=== PATIENT | female | born 1945 | race Caucasian/White ===

== ENCOUNTER 2018-02-15 14:02 | Emergency (ER) | payer MEDICARE, BC ==
[2018-02-15 14:07] VITALS: BP 132/81; PULSE 76; RESP 20; TEMP 98.4
--- NOTE | 2018-02-15 14:29 | ED ---
General Adult HPI - General Chief complaint: Skin/Abscess/Foreign Body Stated complaint: Possible Shingles Time Seen by Provider: 02/15/18 14:15 Source: patient, RN notes reviewed Mode of arrival: ambulatory Limitations: no limitations - History of Present Illness Initial comments: Patient is a 72-year-old female who presents to the emergency department with complaints of a rash for 2 days that has blisters. Patient states that it is tender at rest also with touch. She reports trying A+D Ointment on it. She reports that she had shingles in her eye previously. She reports having gotten the shingles vaccine. She denies being around anyone with chickenpox or shingles recently. She denies pain, it is only "tender." She denies needing pain medication at this time. Denies any other rashes. Patient denies any recent itchiness, fever, chills, shortness of breath, chest pain, back pain, abdominal pain, nausea or vomiting, numbness or tingling, headaches or visual changes, or any other complaints. - Related Data Previous Rx's Medication Instructions Recorded predniSONE 40 mg PO DAILY 5 Days tab 02/15/18 valACYclovir HCL [Valtrex] 1,000 mg PO TID #21 tablet 02/15/18 Allergies Allergy/AdvReac Type Severity Reaction Status Date / Time No Known Allergies Allergy Verified 02/15/18 14:07 Review of Systems ROS Statement: Those systems with pertinent positive or pertinent negative responses have been documented in the HPI. ROS Other: All systems not noted in ROS Statement are negative. Past Medical History Past Medical History: Hyperlipidemia, Hypertension Additional Past Medical History / Comment(s): ulcerative colitis, back pain History of Any Multi-Drug Resistant Organisms: None Reported Past Surgical History: Orthopedic Surgery Past Psychological History: No Psychological Hx Reported Smoking Status: Former smoker Past Alcohol Use History: Occasional Past Drug Use History: None Reported General Exam - General Exam Comments Initial Comments: General: Well-developed, well-nourished, no acute distress HEENT: Normocephalic/atraumatic, PERRL, no eye erythema, no pharynx erythema, swallowing well, no cervical lymph nodes Neck: Supple, nontender, trachea midline Chest/Lungs: Normal respirations, no signs of respiratory distress, clear to auscultation bilaterally, no wheezes, rales, or rhonchi Cardiac: Regular rate and rhythm, normal S1-S2, no murmurs rubs or gallops Abdomen/GI: Tenderness to palpation over the rash. Soft. Musculoskeletal: Nontender, moving all extremities Skin: Erythematous vesicular rash over right back/flank/ abdomen in dermatomal distribution. No other rashes. Warmth, no cyanosis or diaphoresis. Neurologic: A&O x 3 Psychiatric: Mood and affect normal, judgment normal Limitations: no limitations Course Vital Signs 02/15/18 14:05 Temperature 98.4 F Pulse Rate 76 Respiratory 20 Rate Blood Pressure 132/81 O2 Sat by Pulse 98 Oximetry Medical Decision Making - Medical Decision Making Patient is a 72-year-old female who presents the emergency department with complaint of a rash that is vascicular in a dermatomal distribution on her right side. This appears to be a shingles rash. Prescribed Valtrex and prednisone. Case discussed with Dr. Palencia. Disposition Clinical Impression: Herpes zoster Disposition: HOME SELF-CARE Condition: Good Instructions: Shingles (ED) Additional Instructions: Follow-up with PCP in 2 days. Return to the emergency department if symptoms worsen or any other concerns. Prescriptions: predniSONE 40 mg PO DAILY 5 Days tab valACYclovir HCL [Valtrex] 1,000 mg PO TID #21 tablet Is patient prescribed a controlled substance at d/c from ED?: No Referrals: Juan Daniel Yo DO [Primary Care Provider] - 1-2 days Time of Disposition: 15:54
== END 2018-02-15 15:57 | disposition home or self-care (01) ==
LOC: EC 14:02
DX: B02.9 Zoster without complications (principal); I10 Essential (primary) hypertension; Z87.891 Personal history of nicotine dependence
CPT/HCPCS: 99282

== ENCOUNTER → 2021-03-29 | Outpatient (CLI) | payer MEDICARE, BC ==
--- NOTE | 2021-03-29 16:51 | XR ---
Left humerus HISTORY: Pain 2 views of the left humerus, no comparisons There is arthropathy within the left shoulder, spurring, eburnation at the glenohumeral joint. Acromi al clavicular joint arthropathy is also present, there is a downward turn acromion. Left lung apex as visualized is normal. Bone mineralization is reduced. No fracture or dislocation. IMPRESSION: Osteoarthritis, correlate for impingement within the shoulder.
== END | disposition home or self-care (01) ==
LOC: RADXRMAIN 14:32
PROVIDERS: ATTEND Family Medicine
DX: M19.012 Primary osteoarthritis, left shoulder (principal)

== ENCOUNTER 2021-08-28 13:15 | Day surgery (SDC) | payer MEDICARE, BC ==
[2021-08-25 09:49] VITALS: BMI 30.2
[~2021-08-28 13:15] MED LIST: LACTATED RINGERS 1,000 ML IV SCH; SODIUM CHLORIDE 0.9% 1,000 ML IV SCH
[2021-08-28] MEDS ORDERED: SODIUM CHLORIDE 0.9% 1,000 ML IV ONE (13:57)
[2021-08-28 14:11] LABS: INR 2.9 (<1.2); Prothrombin Time 28.6 sec (9.0-12.0)
[2021-08-28] MEDS ORDERED: SUCCINYLCHOLINE CHLORIDE 100 MG/5 ML SYR IV ONE (15:59)
[2021-08-28] MEDS ORDERED: PROTAMINE SULFATE 10 MG/ML 5 ML VIAL IV ONE (15:59)
[2021-08-28] MEDS ORDERED: MIDAZOLAM 2 MG/2 ML VIAL ONE (15:59)
[2021-08-28] MEDS ORDERED: ISOPROTERENOL 250 MCG/1.25 ML SYR IV ONE (15:59)
[2021-08-28] MEDS ORDERED: LIDOCAINE 1% INJ 10MG/ML (20 ML MDV) ONE ×2 (15:59→16:22)
[2021-08-28] MEDS ORDERED: fentaNYL (PF) 50 MCG/ML 2 ML AMP ONE (15:59)
[2021-08-28] MEDS ORDERED: PROPOFOL 10 MG/ML 20 ML VIAL IV ONE (15:59)
[2021-08-28] MEDS ORDERED: HEPARIN SODIUM,PORCINE 10,000 UNIT/ML 1 ML VIAL ONE (15:59)
--- NOTE | 2021-08-28 16:11 | P.HPCAR ---
History of Present Illness This is Dr. Thrasher dictating an H/P on this patient The patient was interviewed and examined IMPRESSION / ASSESSMENT: Persistent atrial fibrillation Status post electrocardioversion on flecainide 100 mg twice daily Hypothyroidism currently on methimazole. TSH is normalized Preserved LV systolic function, no ischemia on stress testing A. fib with RVR on propranolol, after 180 beats a minute On warfarin, INR therapeutic at 2.9 PLAN: A. fib ablation Continue warfarin HPI Patient is doing well from a cardiac standpoint no chest discomfort no dizziness lightheadedness or palpitations during orthopnea PND. No fever chills cough expectoration ROS: No fever chills or rigors, no cough, phlegm or expectoration, no nausea, vomiting or diarrhea, no hematuria, dysuria, no musculoskeletal complaints, no strokes or seizures, no skin lesions. EXAMINATION: On examinationHR 61 blood pressure 172/91 No JVD Normal breath sounds No rhonchi no crackles Normal S1 normal S2 no murmurs Abdomen soft Extremities warm no edema REVIEW OF LABS, ECG & MEDICAL DATA INR 2.9 Physical Exam Vitals: Vital Signs Temp Pulse Resp BP Pulse Ox 08/28/21 14:00 98.2 F 107 H 16 172/91 97 Intake and Output 08/28/21 08/28/21 08/28/21 06:59 14:59 22:59 Intake Total 50 Balance 50 Intake: IV 50 Other: Weight 94.7 kg Past Medical History Past Medical History: Atrial Fibrillation, Cancer, Hyperlipidemia, Hypertension, Osteoarthritis (OA), Thyroid Disorder Additional Past Medical History / Comment(s): ulcerative colitis, back pain, breast cancer 2001-had surgery & radiation, hyperthyroid, see Dr. Thrasher H & P History of Any Multi-Drug Resistant Organisms: None Reported Past Surgical History: Breast Surgery, Joint Replacement, Orthopedic Surgery Additional Past Surgical History / Comment(s): right breast lumpectomy, alexandra hip replacements Past Anesthesia/Blood Transfusion Reactions: No Reported Reaction Smoking Status: Former smoker Physical Examination Vital Signs Temp Pulse Resp BP Pulse Ox 08/28/21 14:00 98.2 F 107 H 16 172/91 97 Intake and Output 08/28/21 08/28/21 08/28/21 06:59 14:59 22:59 Intake Total 50 Balance 50 Intake: IV 50 Other: Weight 94.7 kg Results Coagulation 08/28/21 Range/Units 13:53 PT 28.6 H (9.0-12.0) sec Current Medications Generic Name Dose Route Start Last Admin Trade Name Freq PRN Reason Stop Dose Admin Lactated Ringer's 1,000 mls @ 20 mls/hr 08/28/21 07:31 Lactated Ringers IV 09/27/21 07:32 .Q24H ADDY Sodium Chloride 1,000 mls @ 20 mls/hr 08/28/21 07:31 Saline 0.9% IV 09/27/21 07:32 .Q24H ADDY Intake and Output 08/28/21 08/28/21 08/28/21 06:59 14:59 22:59 Intake Total 50 Balance 50 Intake: IV 50 Other: Weight 94.7 kg Patient Weight 08/29/21 06:59 Weight 94.7 kg
[2021-08-28] MEDS ORDERED: LIDOCAINE 1% INJ 10MG/ML (20 ML MDV) SQ ONE ×2 (16:28)
[2021-08-28] MEDS ORDERED: HEPARIN SOD,PORK IN 0.45% NACL 25,000 UNIT in 0.45% NACL 1 250ML.BAG IV ONE (17:00)
[2021-08-28] MEDS ORDERED: IOPAMIDOL-370 100ML BTL INJ ONE (18:00)
[2021-08-28] MEDS ORDERED: ACETAMINOPHEN IV (For NPO) 1,000 MG in EMPTY BAG 1 BAG IVPB ONE (18:18)
[2021-08-28] MEDS ORDERED: ACETAMINOPHEN TAB 325 MG TAB PO PRN (18:18)
--- NOTE | 2021-08-28 18:22 | P.PRLE ---
RE: Concetta Lu Dear Juan Daniel Hylton underwent successful PVI and left atrial roof ablation for management of atrial fibrillation At this time I would continue flecainide 50 mg twice daily as well as anticoagulation Thank you for entrusting me with the care of the patient Warm regards Sincerely Jos Thrasher
--- NOTE | 2021-08-28 18:46 | P.EPPROC ---
- EP Procedure Note Electrophysiology Procedure Note: PROCEDURE A. fib ablation DIAGNOSIS Persistent Atrial fibrillation, symptomatic RESULT No left atrial appendage mass seen on intracardiac echo Successful A. fib ablation/pulmonary vein isolation of all veins using cryo- ablation Left atrial roof line Complete entrance block in all 4 veins confirmed No evidence for phrenic nerve injury Esophageal deflection YES , left-sided esophagus Following that Inducible atrial tachycardia with concentric CS activation, atrial CL 360 ms at the end of the procedure Antitachycardia pacing failed Electrical cardioversion with a synchronized shock across the chest was successful PROCEDURE DETAILS Patient was brought to the EP lab in a fasting state after obtaining written informed consent. Procedure performed under general anesthesia Esophagus was intubated. Esophageal temperature monitoring with circa catheter. Esophageal deflection with an endoscope to avoid hypothermia of the esophagus. After initial muscle relaxant use, muscle relaxants were not given thereafter in order to assess phrenic nerve during procedure. Patient prepped and draped as per protocol Cryo ablation-set up with standard preparation of the cryoablation tools done. Femoral Venous access obtained on the right and left groins and sheaths placed Diagnostic catheters for the high right atrium, phrenic nerve stimulation and pacing, His bundle, coronary sinus placed Intracardiac echo catheter placed. Long sheath placed in the right atrium Left and right transseptal catheterization performed under intracardiac echo guidance. Intravenous heparin with aCT above 300 Later, catheter positioning and balloon positioning in the left atrium and pulmonary veins, under intracardiac echo guidance Diagnostic EP study with coronary sinus pacing and recording Baseline measurements: Sinus cycle length 863 ms, WV interval 178 ms, QRS 112 and QT 570 ms AH 83 and HV 43 ms AV node Wenckebach block 420 ms Sinus recovery times at 600, 500-400 ms were 1085, 1123 and 1121 ms Transseptal catheterization performed RA pressure 13/2/8 LA pressure 20/6/13 Transseptal catheterization performed with standard sheath. The cryoablation sheath was then placed with an over the wire exchange without any acute complications. The cryoablation balloon was placed in the office of each pulmonary vein and all 4 pulmonary veins were isolated. IV dye was injected to confirm occlusion. Goal: achieve complete occlusion of the pulmonary vein, achieve -30 degrees C at 30 seconds and achieve -40 degrees C at 60 seconds and a time to effect of less than 60 seconds. If not, the balloon was repositioned to obtain this result After completion of Cryoblation with durations from 180-240 seconds, entrance block was confirmed with the Attain circular catheter in a roving fashion around the antrum of the pulmonary veins Phrenic nerve pacing was performed from the SVC, right innominate vein area and diaphragm voltage was monitored. Diaphragmatic contractions were also monitored manually for strength of contraction. Linear ablation was performed across the left atrial roof with contiguous overlapping lesions At the end of the procedure the Achieve catheter was once again used to check for entrance block Phrenic nerve stimulation was performed to confirm diaphragmatic stimulation the end of the procedure Cine fluoroscopy was performed at the very end of the procedure to confirm movement of both diaphragms with inspiration and expiration Following that burst stimulation was performed from the high right atrium. At a pacing cycle length of 290 ms, atrial tachycardia with concentric atrial activation in the Manny sinus poles, Atrial cycle length 360 ms Not pace terminable Electrical cardioversion was performed to sinus rhythm Following that Isuprel was administered No atrial fibrillation could be induced At the end of the procedure the patient was extubated Venous sheaths were removed and hemostasis assured with a closure device PROCEDURES PERFORMED Diagnostic EP study CS pacing and recording Left and right transseptal catheterization Catheter the mapping of the tachycardia Intracardiac echocardiography Pulmonary vein isolation with transseptal and comprehensive EPS, 18671 Drug infusion, +40009 Left atrial roof line, +60968 Electrical cardioversion with a synchronized shock across the chest 19646
[2021-08-28] MEDS ORDERED: WARFARIN 7.5 MG TAB PO ONE (19:00)
[2021-08-28] MEDS: sulfaSALAzine 500 MG TAB PO SCH (20:41)
[2021-08-28] MEDS: FLECAINIDE 50 MG TAB PO SCH (20:41)
[2021-08-28] MEDS: azaTHIOprine 50 MG TAB PO SCH (20:41)
[2021-08-28] MEDS: PROPRANOLOL 10 MG TAB PO SCH (20:42)
[2021-08-29 06:32] LABS: INR 2.2 (<1.2); Prothrombin Time 22.4 sec (9.0-12.0)
[2021-08-29 06:58] VITALS: BP 133/80; PULSE 65; RESP 18; TEMP 98
[2021-08-29] MEDS: FLECAINIDE 50 MG TAB PO SCH (08:34)
[2021-08-29] MEDS: PROPRANOLOL 10 MG TAB PO SCH (08:34)
[2021-08-29] MEDS: azaTHIOprine 50 MG TAB PO SCH (08:35)
[2021-08-29] MEDS: sulfaSALAzine 500 MG TAB PO SCH (08:35)
[2021-08-29] MEDS ORDERED: ATORVASTATIN 40 MG TAB PO SCH (09:00)
[2021-08-29] MEDS ORDERED: methIMAzole 5 MG TAB PO SCH (09:00)
[2021-08-29] MEDS ORDERED: GABAPENTIN 300 MG CAP PO SCH (09:00)
[2021-08-29] MEDS ORDERED: MAGNESIUM OXIDE 400 MG TAB PO SCH (09:00)
--- NOTE | 2021-08-29 11:22 | P.DS ---
Providers Attending physician: Jos Thrasher Primary care physician: Juan Daniel [facility] Course: The patient is a 75-year-old female with persistent atrial fibrillation. The patient underwent elective pulmonary vein isolation with Dr. Thrasher on 08/28/2021. The patient tolerated her procedure well. She has been up ambulating around her room this morning. Stitch was removed by nursing staff. Patient was interviewed and examined sitting comfortably in the recliner chair. No chest pain or chest pressure. Mildly sore throat. No dyspnea, orthopnea, dizziness, or lightheadedness. GENERAL: Well-appearing, well-nourished and in no acute distress. NECK: Supple without JVD or thyromegaly. LUNGS: Breath sounds clear to auscultation bilaterally. Respiration equal and unlabored. No wheezes, rales or rhonchi. HEART: Regular rate and rhythm without murmurs, rubs or gallops. S1 and S2 h eard. EXTREMITIES: Normal range of motion, no edema. No clubbing or cyanosis. Peripheral pulses intact and strong. Groin sites are clean, dry, and intact. No drainage. IMPRESSION: Persistent atrial fibrillation, status post cardioversion on flecainide Status post pulmonary vein isolation and left atrial roof line ablation Residual atrial tachycardia 320 ms PLAN: Continue current cardiac medications Start PPI Follow-up in office in 1 week I am dictating on behalf of Dr Jos Thrasher's history/physical and assessment/plan. Plan - Discharge Summary Discharge Rx Participant: No New Discharge Prescriptions: Continue azaTHIOprine [Imuran] 50 mg PO TID Warfarin [Coumadin] 20 mg PO TU Magnesium Oxide [Mag-Ox] 400 mg PO DAILY methIMAzole 10 mg PO MOTUWETH Rosuvastatin [Crestor] 20 mg PO DAILY Flecainide Acetate 50 mg PO Q12H Warfarin [Coumadin] 15 mg PO SUMOWETHFRSA Gabapentin [Neurontin] 300 mg PO DAILY Propranolol [Inderal] 10 mg PO TID sulfaSALAzine [Sulfasalazine] 1,000 mg PO BID Discharge Medication List Flecainide Acetate 50 mg PO Q12H 08/25/21 [History] Gabapentin [Neurontin] 300 mg PO DAILY 08/25/21 [History] Magnesium Oxide [Mag-Ox] 400 mg PO DAILY 08/25/21 [History] Propranolol [Inderal] 10 mg PO TID 08/25/21 [History] Rosuvastatin [Crestor] 20 mg PO DAILY 08/25/21 [History] Warfarin [Coumadin] 15 mg PO SUMOWETHFRSA 08/25/21 [History] Warfarin [Coumadin] 20 mg PO TU 08/25/21 [History] azaTHIOprine [Imuran] 50 mg PO TID 08/25/21 [History] methIMAzole 10 mg PO MOTUWETH 08/25/21 [History] sulfaSALAzine [Sulfasalazine] 1,000 mg PO BID 08/25/21 [History] Follow up Appointment(s)/Referral(s): Jos Thrasher MD [STAFF PHYSICIAN] - 1 Week (Follow-up with Antonia Li in 1 week) Patient Instructions/Handouts: Cardiac Ablation (DC) Activity/Diet/Wound Care/Special Instructions: Post EP study - Ablation instructions 1. Keep access sites dry for 2 days. 2. No heavy lifting or straining for 2 days. 3. Avoid bending the hips repeatedly for 2 days. 4. You may go up and down stairs slowly Call if the following is noted 1. Bleeding, increasing swelling or pain at the access sites. 2. Increasing chest discomfort, especially upon taking a deep breath. 3. Increasing shortness of breath, at rest or with exertion. 4. Undue cough / phlegm 5. Difficulty or pain while swallowing. 6. Pain or change in color in the extremities. 7. Fever, chills, rigors. 8. Increasing headache or neurologic symptoms. 9. Dizziness, fainting, palpitations Discharge Disposition: HOME SELF-CARE
[2021-08-29] MEDS ORDERED: WARFARIN 10 MG TAB PO ONE (18:00)
[2021-08-29] MEDS ORDERED: WARFARIN 5 MG TAB PO SCH (18:18)
== END 2021-08-29 12:00 | disposition home or self-care (01) ==
LOC: CATHEP 13:15 → 6NMEDSUR 18:20 → CATHEP 08-29 12:00
PROVIDERS: ATTEND Internal Medicine Clinical Cardiac Electrophysiology
DX: I48.19 Other persistent atrial fibrillation (principal); Z79.899 Other long term (current) drug therapy; E03.9 Hypothyroidism, unspecified; Z79.01 Long term (current) use of anticoagulants; Z79.890 Hormone replacement therapy; M19.90 Unspecified osteoarthritis, unspecified site; Z87.19 Personal history of other diseases of the digestive system; Z08 Encounter for follow-up examination after completed treatment for malignant neoplasm; Z85.3 Personal history of malignant neoplasm of breast; Z92.3 Personal history of irradiation; Z96.643 Presence of artificial hip joint, bilateral; Z98.890 Other specified postprocedural states; Z87.891 Personal history of nicotine dependence
CPT/HCPCS: 93623; 93656; 93657; 85610 ×2; 92960; C1894 ×2; C1769 ×4; C1760; C1759; C1893; C1733; C1766; C1730; J7500 ×2; J2250; J2720; J1644 ×2; J2001; J3010; J0131; J0330; J2704; Q9967

== ENCOUNTER → 2021-12-14 | Outpatient (CLI) | payer MEDICARE, BC ==
--- NOTE | 2021-12-14 11:21 | US ---
EXAMINATION TYPE: US thyroid st tissue head/neck DATE OF EXAM: 12/14/2021 COMPARISON: NONE CLINICAL HISTORY: 75-year-old female E04.2 NONTOXIC MULTINODULAR GOITER. Nodules TECHNIQUE: Multiple sonographic images of the thyroid gland are obtained. FINDINGS: GLAND SIZE: Right Lobe: 5.4 x 2.0 x 1.8 cm Overall Parenchyma: heterogenous Left Lobe: 3.6 x 1.7 x 1.7 cm Overall Parenchyma: heterogeneous Isthmus Thickness: 0.3 cm NODULES RIGHT: # of nodules measured on right: 0 LEFT: # of nodules measured on left: 0 ISTHMUS: # of nodules measured in the isthmus: 0 Bilateral neck scanned, no evidence of lymphadenopathy. IMPRESSION: The right lobe is borderline to mildly enlarged, larger than the left. No discrete nodules.
== END | disposition home or self-care (01) ==
LOC: RADUSWWP 09:22
PROVIDERS: ATTEND Internal Medicine Endocrinology, Diabetes & Metabolism
DX: E04.2 Nontoxic multinodular goiter (principal)
CPT/HCPCS: 76536

== ENCOUNTER → 2023-09-09 | Outpatient (CLI) | payer MEDICARE, BC ==
[2023-09-09 21:32] LABS: INR 3.53 sec (0.93-1.11); Prothrombin Time 35.1 sec (9.9-11.9)
[2023-09-09 22:56] LABS: ALT 34 U/L (8-44); AST 54 U/L (13-35); Albumin 4.3 g/dL (3.8-4.9); Albumin/Globulin Ratio 1.65 Ratio (1.60-3.17); Alkaline Phosphatase 81 U/L (41-126); BUN/Creat Ratio 14.42 Ratio (12.00-20.00); Blood Urea Nitrogen 17.3 mg/dL (9.0-27.0); Calcium 9.6 mg/dL (8.7-10.3); Carbon Dioxide 20.7 mmol/L (21.6-31.8); Chloride 106 mmol/L (96-109); Globulin 2.6 g/dL (1.6-3.3); Glucose 89 mg/dL (70-110); Magnesium 1.9 mg/dL (1.5-2.4); Sodium 140 mmol/L (135-145); Total Bilirubin 0.6 mg/dL (0.3-1.2); Total Protein 6.9 g/dL (6.2-8.2)
== END | disposition home or self-care (01) ==
LOC: LABWHC1 13:12
PROVIDERS: ATTEND Internal Medicine Endocrinology, Diabetes & Metabolism
DX: E05.90 Thyrotoxicosis, unspecified without thyrotoxic crisis or storm (principal); I48.19 Other persistent atrial fibrillation; I10 Essential (primary) hypertension
CPT/HCPCS: 36415; 80053; 83735; 84443; 85610

== ENCOUNTER 2024-09-25 05:13 | Inpatient (IN) | payer MEDICARE, BC ==
--- NOTE | 2024-09-25 05:34 | ED ---
General Adult HPI - General Source: patient, family Mode of arrival: wheelchair <Kirk Hoffmann - Last Filed: 09/25/24 06:59> <Desmond Galvan - Last Filed: 09/25/24 10:44> - General Chief complaint: Abdominal Pain Stated complaint: abd pain leg swellng Time Seen by Provider: 09/25/24 05:23 - History of Present Illness Initial comments: Dictation was produced using VeriShow dictation software. please excuse any grammatical, word or spelling errors. Chief Complaint: 78-year-old female presents to the emergency department with abdominal pain History of Present Illness: Patient 78-year-old female presents emergency department abdominal pain. Patient has history of diverticulitis recent completed course of antibiotics for treatment of diverticulitis. States that she could have improved after completing the course however her symptoms recurred. Patient states she is having lack of bowel movements. She is passing gas. No nausea vomiting. No fever chills or night sweats. States that the pain is to her lower abdomen. The ROS documented in this emergency department record has been reviewed and confirmed by me. Those systems with pertinent positive or negative responses have been documented in the HPI. All other systems are other negative and/or noncontributory. (Kirk Hoffmann) - Related Data Home Medications Medication Instructions Recorded Confirmed Gabapentin [Neurontin] 300 mg PO DAILY 08/25/21 09/25/24 Magnesium Oxide [Mag-Ox] 400 mg PO DAILY 08/25/21 09/25/24 Warfarin [Coumadin] 5 mg PO MOTUTHFRSA@2100 08/25/21 09/25/24 Warfarin [Coumadin] 10 mg PO SUWE 08/25/21 09/25/24 azaTHIOprine [Imuran] 50 mg PO HS 08/25/21 09/25/24 methIMAzole 5 mg PO MOTUWETH 08/25/21 09/25/24 sulfaSALAzine 1,000 mg PO BID 08/25/21 09/25/24 Pantoprazole [Protonix] 40 mg PO HS 08/29/21 09/25/24 Cholecalciferol [Vitamin D3 (25 25 mcg PO DAILY 09/25/24 09/25/24 Mcg = 1000 Iu)] Cyanocobalamin (Vitamin B-12) 1,000 mcg PO HS 09/25/24 09/25/24 [Vitamin B-12] Flecainide [Tambocor] 25 mg PO DAILY 09/25/24 09/25/24 Flecainide [Tambocor] 50 mg PO HS 09/25/24 09/25/24 Losartan [Cozaar] 25 mg PO BID 09/25/24 09/25/24 Metoprolol Succinate (ER) [Toprol 25 mg PO DAILY 09/25/24 09/25/24 Xl] Multivit-Min/FA/Lycopen/Lutein 1 tab PO DAILY 09/25/24 09/25/24 [Centrum Silver Tablet] Rosuvastatin Calcium [Crestor] 40 mg PO HS 09/25/24 09/25/24 Allergies Allergy/AdvReac Type Severity Reaction Status Date / Time No Known Allergies Allergy Verified 09/25/24 10:29 Review of Systems ROS Other: All systems not noted in ROS Statement are negative. <Kirk Hoffmann - Last Filed: 09/25/24 06:59> ROS Other: All systems not noted in ROS Statement are negative. <Desmond Galvan - Last Filed: 09/25/24 10:44> ROS Statement: Those systems with pertinent positive or pertinent negative responses have been documented in the HPI. Past Medical History Past Medical History: Atrial Fibrillation, Cancer, Hyperlipidemia, Hypertension, Osteoarthritis (OA), Thyroid Disorder Additional Past Medical History / Comment(s): ulcerative colitis, back pain, breast cancer 2001-had surgery & radiation, hyperthyroid, see Dr. Thrasher H & P History of Any Multi-Drug Resistant Organisms: None Reported Past Surgical History: Breast Surgery, Joint Replacement, Orthopedic Surgery Additional Past Surgical History / Comment(s): right breast lumpectomy, alexandra hip replacements Past Anesthesia/Blood Transfusion Reactions: No Reported Reaction Past Psychological History: No Psychological Hx Reported Smoking Status: Former smoker Past Alcohol Use History: Rare Past Drug Use History: None Reported <Kirk Hoffmann - Last Filed: 09/25/24 06:59> General Exam <Kirk Hoffmann - Last Filed: 09/25/24 06:59> - General Exam Comments Initial Comments: PHYSICAL EXAM: General Impression: Alert and oriented x3, not in acute distress HEENT: Normocephalic atraumatic, extra-ocular movements intact, pupils equal and reactive to light bilaterally, mucous membranes moist. Cardiovascular: Heart regular rate and rhythm Chest: Able to complete full sentences, no retractions, no tachypnea Abdomen: abdomen soft, tenderness to the lower abdomen r, non-distended, no organomegaly Musculoskeletal: Pulses present and equal in all extremities, no peripheral edema Motor: no focal deficits noted Neurological: CN II-XII grossly intact, no focal motor or sensory deficits noted Skin: Intact with no visualized rashes Psych: Normal affect and mood (Kirk Hoffmann) Course Vital Signs 09/25/24 09/25/24 09/25/24 05:17 06:09 08:54 Temperature 98 F Pulse Rate 85 71 80 Respiratory 18 16 20 Rate Blood Pressure 160/79 140/82 136/78 O2 Sat by Pulse 99 98 96 Oximetry EKG Findings - EKG Comments: EKG Findings:: My EKG interpretation: Ventricular rate 76, sinus rhythm, MN 193, QRS 88, QTc 446. No MN prolongation, no QTC prolongation, no ST or T-wave changes noted. Overall, this EKG is unremarkable <Krik Hoffmann - Last Filed: 09/25/24 06:59> Medical Decision Making - Lab Data Result diagrams: 09/25/24 05:31 09/25/24 05:31 <Kirk Hoffmann - Last Filed: 09/25/24 06:59> - Lab Data Result diagrams: 09/25/24 05:31 09/25/24 05:31 <Desmond Galvan - Last Filed: 09/25/24 10:44> - Medical Decision Making Was pt. sent in by a medical professional or institution (, PA, HEALTH PROMOTER, urgent care, hospital, or senior care...) When possible be specific @ -No Did you speak to anyone other than the patient for history (EMS, parent, family, police, friend...)? What history was obtained from this source @ -No Did you review nursing and triage notes (agree or disagree)? Why? @ -I reviewed and agree with nursing and triage notes Were old charts reviewed (outside hosp., previous admission, EMS record, old EKG, old radiological studies, urgent care reports/EKG's, senior care records)? Report findings @ -No old charts were reviewed Differential Diagnosis (chest pain, altered mental status, abdominal pain women, abdominal pain men, vaginal bleeding, musculoskeletal, weakness, fever, dyspnea, syncope, headache, dizziness, GI bleed, back pain, seizure, CVA, palpatations, mental health)? @ -Differential Abdominal Pain Women: Appendicitis, Cholecystitis, diverticulosis, ischemic bowel, pancreatitis, hepatitis, UTI, gastroenteritis, AAA, incarcerated hernia, bowel obstruction, constipation, inflammatory bowel, hepatitis, peptic ulcer disease, splenic infarction, perforated viscus, vulvitis, ovarian torsion, PID, kidney stone, placenta abruption, this is not meant to be an all-inclusive list EKG interpreted by me (3pts min.). @ -As above X-rays interpreted by me (1pt min.). @ -None done CT interpreted by me (1pt min.). @ - U/S interpreted by me (1pt. min.). @ -None done What testing was considered but not performed or refused? (CT, X-rays, U/S, labs)? Why? @ -None What meds were considered but not given or refused? Why? @ -None Was smoking cessation discussed for >3mins.? @ -No Were there social determinants of health that impacted care today? How? (Homelessness, low income, unemployed, alcoholism, drug addiction, transportation, low edu. Level, literacy, decrease access to med. care, alf, rehab)? @ -No Was there de-escalation of care discussed even if they declined (Discuss DNR or withdrawal of care, Hospice)? DNR status @ -No What co-morbidities impacted this encounter? (DM, HTN, Smoking, COPD, CAD, Cancer, CVA, ARF, Chemo, Hep., AIDS, mental health diagnosis, sleep apnea, morbid obesity)? @ -None Was patient admitted / discharged? Hospital course, mention meds given and route, prescriptions, significant lab abnormalities, going to OR and other pertinent info. @ -78-year-old female with alleged history of diverticulitis presents to the emergency department with recent recurrence of abdominal pain. Pain is to the lower abdomen. Vital signs stable. No leukocytosis. Patient care signed out to Dr. Galvan at 7 AM for follow-up of pending CT and labs Did you discuss the management of the patient with other professionals (professionals i.e. , PA, HEALTH PROMOTER, lab, RT, psych nurse, group social worker, bench boring machine operator, teacher, fire officer, case monitor)? Give summary @ -No Was critical care preformed (if so, how long)? @ -No Undiagnosed new problem with uncertain prognosis? @ -No Drug Therapy requiring intensive monitoring for toxicity (Heparin, Nitro, Insulin, Cardizem)? @ -No Were any procedures done? @ -No Diagnosis/symptom? Acute, or Chronic, or Acute on Chronic? Uncomplicated (w ithout systemic symptoms) or Complicated (systemic symptoms)? @ -Abdominal pain (ClotildenKirk D) Was patient admitted / discharged? Hospital course, mention meds given and route, prescriptions, significant lab abnormalities, going to OR and other pertinent info. @ -CT of the abdomen pelvis shows a mass in the pelvis along with superimposed diverticulitis. I started the patient on Unasyn and patient will be admitted to Dr. Grover with consult to general surgery Undiagnosed new problem with uncertain prognosis? @ -No Drug Therapy requiring intensive monitoring for toxicity (Heparin, Nitro, Insulin, Cardizem)? @ -No Were any procedures done? @ -No Diagnosis/symptom? @ -Pelvic mass Acute, or Chronic, or Acute on Chronic? @ -Acute Uncomplicated (without systemic symptoms) or Complicated (systemic symptoms)? @ -Complicated Side effects of treatment? @ -No Exacerbation, Progression, or Severe Exacerbation? @ -No Poses a threat to life or bodily function? How? (Chest pain, [place], [place], pneumonia, PE, COPD, DKA, ARF, appy, cholecystitis, CVA, Diverticulitis, Homicidal, Suicidal, threat to staff... and all critical care pts) @ -Yes this could be cancer and have metastatic disease Diagnosis/symptom? @ -Diverticulitis Acute, or Chronic, or Acute on Chronic? @ -Acute Uncomplicated (without systemic symptoms) or Complicated (systemic symptoms)? @ -Complicated Side effects of treatment? @ -None Exacerbation, Progression, or Severe Exacerbation] @ -No Poses a threat to life or bodily function? @ -Yes this could lead to sepsis and endorgan dysfunction (Desmond Galvan) - Lab Data Lab Results 09/25/24 09/25/24 09/25/24 Range/Units 05:31 05:31 05:31 WBC 9.58 (4.50-10.00) 10*3/uL RBC 3.49 L (4.10-5.20) 10*6/uL Hgb 10.9 L (12.0-15.0) g/dL Hct 33.3 L (37.2-46.3) % MCV 95.4 (80.0-97.0) fL MCH 31.2 (27.0-32.0) pg MCHC 32.7 (32.0-37.0) g/dL Plt Count 356 (140-440) 10*3/uL MPV 8.6 L (9.5-12.2) fL Immature Gran % (Auto) 0.4 % Neutrophils % 79.5 % Lymphocytes % 12.4 % Monocytes % 6.9 % Eosinophils % 0.4 % Basophils % 0.4 % Immature Gran # 0.04 (0.00-0.04) 10*3/uL Neutrophils # 7.61 (1.80-7.70) 10*3/uL Lymphocytes # 1.19 (0.90-5.00) 10*3/uL Monocytes # 0.66 (0.20-1.00) 10*3/uL Eosinophils # 0.04 (0.04-0.35) 10*3/uL Basophils # 0.04 (0.00-0.10) 10*3/uL Sodium 139 (137-145) mmol/L Potassium 3.7 (3.5-5.1) mmol/L Chloride 109 H (98-107) mmol/L Carbon Dioxide 20 L (22-30) mmol/L Anion Gap 10 mmol/L BUN 10 (7-17) mg/dL Creatinine 0.74 (0.52-1.04) mg/dL Est GFR (CKD-EPI)AfAm 90 (>60 ml/min/1.73 sqM) Est GFR (CKD-EPI)NonAf 78 (>60 ml/min/1.73 sqM) Glucose 150 H (74-99) mg/dL Plasma Lactic Acid Dontae 1.8 (0.7-2.0) mmol/L Calcium 8.9 (8.4-10.2) mg/dL Total Bilirubin 0.7 (0.2-1.3) mg/dL AST 40 H (14-36) U/L ALT 17 (4-34) U/L Alkaline Phosphatase 64 (38-126) U/L Total Protein 6.2 L (6.3-8.2) g/dL Albumin 3.3 L (3.5-5.0) g/dL Lipase 109 (23-300) U/L Disposition <Kirk Hoffmann - Last Filed: 09/25/24 06:59> Time of Disposition: 10:44 <Desmond Galvan - Last Filed: 09/25/24 10:44> Clinical Impression: Diverticulitis, Pelvic mass Disposition: ADMITTED IP TO THIS HOSP Referrals: Juan Daniel Yo DO [Primary Care Provider] - 1-2 days
[2024-09-25] MEDS: MORPHINE SULFATE 4 MG/ML SYRINGE IV STA (05:35)
[2024-09-25 05:40] LABS: Basophils # (A) 0.04 10*3/uL (0.00-0.10); Basophils % (A) 0.4 %; Eosinophils # (A) 0.04 10*3/uL (0.04-0.35); Eosinophils % (A) 0.4 %; HCT 33.3 % (37.2-46.3); HGB 10.9 g/dL (12.0-15.0); Lymphocytes # (A) 1.19 10*3/uL (0.90-5.00); Lymphocytes % (A) 12.4 %; MCH 31.2 pg (27.0-32.0); MCHC 32.7 g/dL (32.0-37.0); MCV 95.4 fL (80.0-97.0); Mean Platelet Volume 8.6 fL (9.5-12.2); Monocytes # (A) 0.66 10*3/uL (0.20-1.00); Monocytes % (A) 6.9 %; Neutrophils # (A) 7.61 10*3/uL (1.80-7.70); Neutrophils % (A) 79.5 %; Platelet Count 356 10*3/uL (140-440); RBC 3.49 10*6/uL (4.10-5.20); RDW 14.6 % (11.5-14.5); WBC 9.58 10*3/uL (4.50-10.00)
[2024-09-25 06:23] LABS: ALT 17 U/L (4-34); AST 40 U/L (14-36); African American GFR (CKD) 90 (>60 ml/min/1.73 sqM); Albumin 3.3 g/dL (3.5-5.0); Alkaline Phosphatase 64 U/L (38-126); Anion Gap 10 mmol/L; Blood Urea Nitrogen 10 mg/dL (7-17); Calcium 8.9 mg/dL (8.4-10.2); Carbon Dioxide 20 mmol/L (22-30); Chloride 109 mmol/L (98-107); Glucose 150 mg/dL (74-99); Lipase 109 U/L (23-300); Non-African American GFR(CKD) 78 (>60 ml/min/1.73 sqM); Potassium 3.7 mmol/L (3.5-5.1); Sodium 139 mmol/L (137-145); Total Bilirubin 0.7 mg/dL (0.2-1.3); Total Protein 6.2 g/dL (6.3-8.2)
--- NOTE | 2024-09-25 07:15 | CT ---
EXAMINATION TYPE: CT abdomen pelvis w con DATE OF EXAM: 09/25/2024 6:51 AM COMPARISON: None. CLINICAL INDICATION: Female, 78 years old with history of abdominal pain; Lower abd pain, recent diag nosis of diverticulitis, history of breast CA. TECHNIQUE: Axial CT abdomen pelvis w con;Sagittal and coronal reformats were created on a separate w orkstation. Contrast used:100 mL of Isovue 300 with IV Contrast, (none if empty) Oral contrast used: without Oral Contrast (none if empty) CT DLP: 1507.2 mGycm, Automated exposure control for dose reduction was used. FINDINGS: LOWER CHEST: Unremarkable ABDOMEN LIVER: Unremarkable GALLBLADDER AND BILE DUCTS: Unremarkable. PANCREAS: Unremarkable. SPLEEN: Unremarkable. ADRENAL GLANDS: Unremarkable. KIDNEYS AND URETERS: No evidence of hydronephrosis or obstructing renal calculus. The ureters are unr emarkable. Left renal cortical 7 mm cyst. No follow-up recommended. PELVIS BLADDER: No evidence for wall thickening or mass given limitations of exam. REPRODUCTIVE: The ureters thought to be present and retroverted. ABDOMEN & PELVIS STOMACH AND BOWEL: No evidence of bowel obstruction. There is inflammation changes around the sigmoid colon with a few diverticula in place. PERITONEUM/RETROPERITONEUM: No evidence of pneumoperitoneum or free fluid. Complex heterogenous mass in the low pelvis measuring 11.2 x 9.4 x 1.2 cm which may represent uterus and ovaries given the gona luba vessels are extending into the base regions. Complex fluid collection thought to be in the low pe lvis just anterior to the rectum VASCULATURE: Infrarenal duct abdominal dilation up to 2.9 cm. MUSCULOSKELETAL: No acute osseous abnormalities bilateral hip arthroplasties with streak artifact burr ited evaluation of the pelvis. Hips appear intact. LYMPH NODES: No gross evidence for lymphadenopathy. SOFT TISSUE/ABDOMINAL WALL: Unremarkable IMPRESSION: 1. Complex heterogenous masslike area in the pelvis concerning for malignancy until proven otherwise . This could be coming from the uterus and ovaries. Evaluation Limited with streak artifact in the pe lvis demonstrate artifact. 2. Reported diverticulitis may also be superimposed given inflammation changes around the sigmoid co kimberly with a few diverticula. Possible complex fluid collection just anterior to the rectum is present. Correlate for with serum markers for signs of infection. Outside imaging if available would be of be nefit. Further workup recommended consider transabdominal and transvaginal ultrasounds for confirmati on. 09/25/2024 7:10 AM,09/25/2024 6:51 AM,Be Castillo,CT abdomen pelvis w con,[id number] [facility], , 09/25/2024 7:12 AM
[2024-09-25] MEDS: AMPICILLIN-SULBACTAM 3 GM in SODIUM CHLORIDE 0.9% 100 ML IVPB STA (08:52)
[2024-09-25] MEDS: MORPHINE SULFATE 4 MG/ML SYRINGE IVP STA (08:53)
[2024-09-25] MEDS: SODIUM CHLORIDE 0.9% 1,000 ML IV ONE (11:54)
[2024-09-25] MEDS: MORPHINE SULFATE 2 MG/ML SYRINGE IVP PRN (14:26)
[2024-09-25] MEDS: AMPICILLIN-SULBACTAM 3 GM in SODIUM CHLORIDE 0.9% 100 ML IVPB SCH (14:40)
--- NOTE | 2024-09-25 16:40 | P.CON ---
Consult Note - . Consult date: 09/25/24 Assessment/Plan:: Patient 78-year-old female presents [facility] emergency department abdominal pain. Patient has history of diverticulitis and recently completed course of antibiotics for treatment of diverticulitis. States that she could have improved after completing the course however her symptoms recurred. Patient states she is having lack of bowel movements. She is passing gas. No nausea vomiting. No fever chills or night sweats. States that the pain is to her lower abdomen. CT-AP shows likely diverticulitis and a pelvis mass. Review of Systems ROS Other: All systems not noted in ROS Statement are negative. Past Medical History Past Medical History: Atrial Fibrillation, Cancer, Hyperlipidemia, Hypertension, Osteoarthritis (OA), Thyroid Disorder Additional Past Medical History / Comment(s): ulcerative colitis, back pain, breast cancer 2001-had surgery & radiation, hyperthyroid, see Dr. Thrasher H & P History of Any Multi-Drug Resistant Organisms: None Reported Past Surgical History: Breast Surgery, Joint Replacement, Orthopedic Surgery Additional Past Surgical History / Comment(s): right breast lumpectomy, alexandra hip replacements Past Anesthesia/Blood Transfusion Reactions: No Reported Reaction Past Psychological History: No Psychological Hx Reported Smoking Status: Former smoker Past Alcohol Use History: Rare Past Drug Use History: None Reported PHYSICAL EXAM: General Impression: Alert and oriented x3, not in acute distress HEENT: Normocephalic atraumatic, extra-ocular movements intact, pupils equal and reactive to light bilaterally, mucous membranes moist. Cardiovascular: Heart regular rate and rhythm Chest: Able to complete full sentences, no retractions, no tachypnea Abdomen: abdomen soft, tenderness to the lower abdomen r, non-distended, no organomegaly Musculoskeletal: Pulses present and equal in all extremities, no peripheral edema Motor: no focal deficits noted Neurological: CN II-XII grossly intact, no focal motor or sensory deficits noted Skin: Intact with no visualized rashes Psych: Normal affect and mood 78 year old female with abdominal pain. CT-AP concerning for diverticulitis and a pelvic mass -NPO -IV fluids -Agree with Abx -IR consult for biopsy of pelvic mass -Recommend Gynecology consult -No acute surgical intervention Ever Amor DO [facility] [phone]
[2024-09-25 20:39] VITALS: BP 138/82; PULSE 78; RESP 18; TEMP 97.8
== END 2024-09-26 02:44 | disposition left against medical advice (07) | DRG 392 ==
LOC: EC 05:13 → 5NMEDONC 10:45
PROVIDERS: ADMIT Internal Medicine; ATTEND Internal Medicine
DX: K57.32 Diverticulitis of large intestine without perforation or abscess without bleeding (principal); E05.90 Thyrotoxicosis, unspecified without thyrotoxic crisis or storm; I10 Essential (primary) hypertension; K51.90 Ulcerative colitis, unspecified, without complications; I48.91 Unspecified atrial fibrillation; Z53.29 Procedure and treatment not carried out because of patient's decision for other reasons; E78.5 Hyperlipidemia, unspecified; R19.09 Other intra-abdominal and pelvic swelling, mass and lump; M19.90 Unspecified osteoarthritis, unspecified site; Z79.01 Long term (current) use of anticoagulants; Z85.3 Personal history of malignant neoplasm of breast; Z87.891 Personal history of nicotine dependence; Z92.3 Personal history of irradiation; Z96.643 Presence of artificial hip joint, bilateral
CPT/HCPCS: 36415; 74177; 80053; 83605; 83690; 85025; 87040; 93005; 96365; 96366; 96375; 96376; 99285